=== PATIENT | female | born 1955 | race Caucasian/White ===

== ENCOUNTER 2016-09-18 18:09 | Emergency (ER) ==
[2016-09-18] MEDS ORDERED: NORVASC5 MG PO (23:36)
[2016-09-18] MEDS ORDERED: ZOCOR40 MG PO (23:40)
[2016-09-18] MEDS ORDERED: ESTRADIOL0.5 MG PO (23:42)
[2016-09-18] MEDS ORDERED: FLEXERIL10 MG PO (23:43)
[2016-09-18] MEDS ORDERED: MOBIC15 MG PO (23:44)
[2016-09-18] MEDS ORDERED: CENTRAL VITE F1 EACH PO (23:45)
[2016-09-18] MEDS ORDERED: PRILOSEC20 MG PO (23:51)
== END 2016-09-18 18:16 | disposition left against medical advice (07) ==
LOC: ER 18:09
DX: Z53.21 Procedure and treatment not carried out due to patient leaving prior to being seen by health care provider (principal)

== ENCOUNTER 2016-09-18 23:13 | Emergency (ER) | payer BC ==
[~2016-09-18] VITALS: Ht 165.1 cm; Wt 110.7 kg
[2016-09-18] MEDS ORDERED: NORVASC5 MG PO (23:36)
[2016-09-18] MEDS ORDERED: ZOCOR40 MG PO (23:40)
[2016-09-18] MEDS ORDERED: ESTRADIOL0.5 MG PO (23:42)
[2016-09-18] MEDS ORDERED: FLEXERIL10 MG PO (23:43)
[2016-09-18] MEDS ORDERED: MOBIC15 MG PO (23:44)
[2016-09-18] MEDS ORDERED: CENTRAL VITE F1 EACH PO (23:45)
[2016-09-18] MEDS ORDERED: PRILOSEC20 MG PO (23:51)
== END 2016-09-19 00:25 | disposition short-term general hospital (02) ==
LOC: ER 23:13
DX: I10 Essential (primary) hypertension (principal); F41.9 Anxiety disorder, unspecified; Z79.899 Other long term (current) drug therapy; Z88.2 Allergy status to sulfonamides